=== PATIENT | female | born 1995 | race Caucasian/White ===

== ENCOUNTER 2023-12-20 03:29 | Emergency (ER) | payer OTHER ==
[~2023-12-20] VITALS: Ht 152.4 cm; Wt 72.7 kg
[2023-12-20 03:32] VITALS: TEMP 98.4
[2023-12-20] MEDS ORDERED: Benzonatate 100 MG CAP PO ONE (04:00)
[2023-12-20] MEDS ORDERED: NS 1,000 ML IV ONE ×2 (04:00→05:15)
[2023-12-20 04:44] LABS: ALANINE AMINOTRANSFERASE 33 U/L (0-55); ALBUMIN 3.6 g/dL (3.5-5.0); ALKALINE PHOSPHATASE 87 U/L (40-150); ANION GAP 12 mmol/L (7-16); AST,SGOT 35 U/L (5-34); BILIRUBIN,TOTAL 0.5 mg/dL (0.2-1.2); BLOOD UREA NITROGEN 9 mg/dL (7-19); CALCIUM 8.6 mg/dL (8.4-10.2); CHLORIDE 103 mEq/L (98-107); GLUCOSE 98 mg/dL (70-99); SODIUM 137 mEq/L (136-145); TOTAL PROTEIN 7.6 g/dl (6.2-8.1)
[2023-12-20 04:59] LABS: TROPONIN-I < 0.010 ng/mL (0.00-0.033)
[2023-12-20 05:09] LABS: BASO # 0.1 K/mm3 (0.0-0.2); BASO % 0.5 % (0.0-2.0); EOS # 0.3 K/mm3 (0.0-0.7); EOS % 3.4 % (0.0-4.0); GRAN # 7.2 K/mm3 (1.4-6.5); HEMATOCRIT 40.8 % (37.0-47.0); HEMOGLOBIN 13.8 g/dl (12.5-16.0); LYMPH # 1.2 K/mm3 (1.2-3.4); MEAN CELL VOLUME 86 fl (80.0-100.0); MEAN CORPUSCULAR HEMOGLOBIN 29 pg (27-31); MEAN CORPUSCULAR HGB CONC 34 g/dl (33.0-37.0); MEAN PLATELET VOLUME 9.3 fl (7.4-10.4); MONO # 0.7 K/mm3 (0.1-0.6); MONO % 6.9 % (1.7-9.3); PLATELET COUNT 310 K/mm3 (130-400); RED BLOOD COUNT 4.74 M/mm3 (4.10-5.30); REDCELL DISTRIBUTION WIDTH-CV 12.4 % (11.5-14.5)
[2023-12-20] MEDS ORDERED: Iohexol 300 - 100 ML VIAL IV ONE (05:40)
[2023-12-20] MEDS ORDERED: NS 50 ML IV ONE (05:41)
[2023-12-20 05:50] LABS: COLLECTION METHOD CLEAN CATCH
[2023-12-20 05:53] LABS: PH 6.5 (5.0-8.5); URINE APPEARANCE CLEAR (CLEAR/HAZY); URINE BLOOD NEGATIVE (NEGATIVE); URINE COLOR YELLOW (YELLOW); URINE GLUCOSE NEGATIVE (NEGATIVE); URINE KETONE NEGATIVE (NEGATIVE); URINE NITRATE NEGATIVE (NEGATIVE); URINE PROTEIN(semi-quant) NEGATIVE (NEGATIVE); URINE UROBILINOGEN 0.2 E.U/dL (0.2-1.0)
[2023-12-20] MEDS ORDERED: cefTRIAXone 1 G in Water For Injection,Sterile 10 ML IV ONE (06:15)
[2023-12-20] MEDS ORDERED: ZITHROMAX Z PA250 MG PO (06:19)
[2023-12-20] MEDS ORDERED: TESSALON P100 MG/CAP PO (06:19)
[2023-12-20 06:33] VITALS: BP 137/88; PULSE 99
== END 2023-12-20 06:34 | disposition home or self-care (01) ==
LOC: COL.ER 03:29
PROVIDERS: Emergency Medicine
DX: J18.9 Pneumonia, unspecified organism (principal)
CPT/HCPCS: J0696; J7030; Q9967